=== PATIENT | male | born 1995 | race Caucasian/White ===

== ENCOUNTER 2016-11-15 15:03 | Emergency (ER) | payer OTHER ==
[2016-11-15] MEDS ORDERED: ONDANSETRON 4 MG/2 ML VIAL ONE (15:22)
[2016-11-15] MEDS ORDERED: ONDANSETRON 4 MG/2 ML VIAL IVP ONE (15:24)
[2016-11-15] MEDS ORDERED: NS 1,000 ML IV ONE ×2 (15:24→16:17)
--- NOTE | 2016-11-15 15:27 | EDPHY ---
H & P Time Seen by Provider: 11/15/16 15:11 HPI/ROS: CHIEF COMPLAINT: Nausea vomiting HISTORY OF PRESENT ILLNESS: This is a 21-year-old male presenting to the emergency department complaining of nausea vomiting onset at 9 o'clock this morning. Patient states he drinking excessive amount of alcohol starting around 2100 last night along with marijuana use. Denies any use any other drugs. Patient states he woke up feeling fatigued this morning, then afterwards the persistent nausea vomiting. No diarrhea, abdominal cramping intermittent. Denies any other complaints REVIEW OF SYSTEMS: Constitutional: No fever no chills Eyes: No vision changes ENT: No sore throat Respiratory: No shortness of breath Cardiac: No chest pain Gastrointestinal: as above Genitourinary: No urine discomfort Musculoskeletal: No back pain Skin: No rash Neurological: No headache or dizziness Past Medical/Surgical History: Past medical history: Denies Smoking Status: Current some day smoker Physical Exam: General Appearance: Alert, no distress. Eyes: Pupils equal and round or injection. ENT, Mouth: Mucous membranes dry. Respiratory: There are no retractions, lungs are clear to auscultation. Cardiovascular: Regular rate and rhythm. Gastrointestinal: Abdomen is soft and nontender, no masses, bowel sounds normal. Neurological: No focal deficits Skin: Warm and dry, no rashes. Diaphoretic pallor Musculoskeletal: Neck is supple nontender. Extremities: symmetrical, full range of motion. Psychiatric: Patient is oriented X 3, there is no agitation. DIFFERENTIAL DIAGNOSIS: After history and physical exam differential diagnosis was considered for [ ] Constitutional: Initial Vital Signs Temperature (C) 37.4 C 11/15/16 15:04 Heart Rate 77 11/15/16 15:04 Respiratory Rate 22 H 11/15/16 15:04 Blood Pressure 127/79 H 11/15/16 15:04 O2 Sat (%) 98 11/15/16 15:04 O2 Delivery Mode Room Air Allergies/Adverse Reactions: No Known Allergies Allergy (Unverified 11/15/16 15:09) Home Medications: Medication Instructions Recorded NK [No Known Home Meds] 11/15/16 Medical Decision Making ED Course/Re-evaluation: Discussed plan of care: IV fluids for dehydration, Chem 7 [id number]: Patient feeling better no nausea vomiting, 2nd L given for dehydration. Discharge home---> stable, discussed discharge instructions the patient Differential Diagnosis: Differential diagnosis considered but not limited to gastroenteritis, alcohol intoxication and drug intoxication - Data Points Laboratory Results: Laboratory Results 11/15/16 15:20 11/15/16 15:20 Sodium 143 mEq/L mEq/L (134-144) Potassium 3.9 mEq/L mEq/L (3.5-5.2) Chloride 105 mEq/L mEq/L (97-110) Carbon Dioxide 15 mEq/l L mEq/l (22-31) Anion Gap 23 mEq/L H mEq/L (8-16) BUN 11 mg/dL mg/dL (7-23) Creatinine 0.8 mg/dL mg/dL (0.7-1.3) Estimated GFR > 60 Glucose 98 mg/dL mg/dL (70-100) Calcium 10.7 mg/dL H mg/dL (8.5-10.4) Phosphorus 3.3 mg/dL mg/dL (2.5-4.5) Medications Given: Discontinued Medications Sodium Chloride (Ns) 1,000 mls @ 0 mls/hr IV ONCE ONE PRN Reason: Wide Open Stop: 11/15/16 15:25 Last Admin: 11/15/16 15:25 Dose: 1,000 mls Sodium Chloride (Ns) 1,000 mls @ 0 mls/hr IV ONCE ONE PRN Reason: Wide Open Stop: 11/15/16 16:18 Last Admin: 11/15/16 16:25 Dose: 1,000 mls Ondansetron HCl (Zofran) 4 mg IVP EDNOW ONE Stop: 11/15/16 15:25 Last Admin: 11/15/16 15:25 Dose: 4 mg Ondansetron HCl (Zofran Odt 4 Mg Prepack#2) 1 btl TAKEHOME EDNOW ONE Stop: 11/15/16 16:34 Last Admin: 11/15/16 16:39 Dose: 1 btl Departure - Departure Disposition: Home, Routine, Self-Care Clinical Impression: Nausea & vomiting Qualifiers: Vomiting type: unspecified Vomiting Intractability: non-intractable Qualified Code(s): R11.2 - Nausea with vomiting, unspecified Condition: Good Instructions: Ondansetron (By mouth), Acute Nausea and Vomiting (ED) Additional Instructions: 1. Increase fluid intake. For the next 6-12 hours I would recommend liquid diet such as: Water, Gatorade, ice chips, ,Jell-O broth. Then you can advance to bland diet banana, applesauce open 2. You are sent home with Zofran use as needed for nausea Referrals: NONE *PRIMARY CARE P,. [Primary Care Provider] - As per Instructions [facility] [Clinic] - As per Instructions [facility],. [Clinic] - As per Instructions
[2016-11-15 15:46] LABS: ANION GAP 23 mEq/L (8-16); CALCIUM 10.7 mg/dL (8.5-10.4); CARBON DIOXIDE 15 mEq/l (22-31); CHLORIDE 105 mEq/L (97-110); CREATININE 0.8 mg/dL (0.7-1.3); GLOMERULAR FILTRATION RATE > 60; GLUCOSE 98 mg/dL (70-100); POTASSIUM 3.9 mEq/L (3.5-5.2); SODIUM 143 mEq/L (134-144)
[2016-11-15] MEDS ORDERED: ONDANSETRON 4MG PREPACK#2 BTL TAKEHOME ONE (16:33)
[2016-11-15 16:39] VITALS: RESP 20
[2016-11-15 17:40] VITALS: BP 125/66; PULSE 73; TEMP 97.5; O2SAT 97
== END 2016-11-15 17:40 | disposition home or self-care (01) ==
DX: R11.2 Nausea with vomiting, unspecified (principal); F17.200 Nicotine dependence, unspecified, uncomplicated
CPT/HCPCS: 96374; J2405